=== PATIENT | male | born 1950 | race Caucasian/White ===

== ENCOUNTER 2022-02-28 07:33 | Day surgery (SDC) | payer MEDICARE, BC ==
[2022-02-27 14:36] LABS: BASOPHILS # (AUTO) 0.1 X10'3 (0-0.2); BASOPHILS % (AUTO) 0.8 % (0-1); EOSINOPHILS # (AUTO) 0.2 X10'3 (0-0.9); EOSINOPHILS % (AUTO) 2.6 % (0-6); HEMATOCRIT 34.9 % (42.0-52.0); LYMPHOCYTES # (AUTO) 1.9 X10'3 (1.1-4.8); LYMPHOCYTES % (AUTO) 22.1 % (21-51); MEAN CORPUSCULAR HEMOGLOBIN 24.9 PG (27.0-31.0); MEAN CORPUSCULAR HGB CONC 31.6 g/dL (33.0-36.5); MEAN CORPUSCULAR VOLUME 78.7 FL (78-98); MEAN PLATELET VOLUME 6.6 FL (7.4-10.4); MONOCYTES # (AUTO) 0.8 X10'3 (0-0.9); MONOCYTES % (AUTO) 9.4 % (2-12); NEUTROPHILS # (AUTO) 5.6 X10'3 (1.8-7.7); NEUTROPHILS % (AUTO) 65.1 % (42-75); PLATELET COUNT 444 X10'3 (140-440); RED BLOOD COUNT 4.44 X10'6 (4.70-6.10); RED CELL DISTRIBUTION WIDTH 18.4 % (11.5-14.5); WHITE BLOOD COUNT 8.6 X10'3 (4.5-11.0)
[2022-02-27 14:38] LABS: ALBUMIN 3.1 G/DL (3.4-5.0); ANION GAP 6 (8-16); BLOOD UREA NITROGEN 14 MG/DL (7-18); BUN/CREATININE RATIO 12.1 (5.4-32.0); CALCIUM 8.8 MG/DL (8.5-10.1); CHLORIDE 103 MMOL/L (99-107); CREATININE 1.16 MG/DL (0.60-1.10); GLUCOSE 273 MG/DL (70-104); POTASSIUM 4.2 MMOL/L (3.5-5.1); SODIUM 137 MMOL/L (135-145); TOTAL CARBON DIOXIDE 28.3 MMOL/L (24-32); eGFR 62 ML/MIN
[2022-02-27 14:42] LABS: APTT 24 SECONDS (22-32)
[~2022-02-28] VITALS: Ht 170.2 cm; Wt 109.1 kg
[2022-02-28] VITALS (17 sets, daily range): BP systolic 113–154; BP diastolic 54–83
[~2022-02-28 07:33] MED LIST: ASPI-1265 PO; ATOR40TA PO; CLOP75TA34 PO; FLO0.4C PO; FOLI0.4T6 PO; LOSA25TA96 PO; METO-411 PO; NIA500ERT PO; NITR0.4T51 SL; VITA-268 PO
[2022-02-28] MEDS ORDERED: diphenhydrAMINE 25mg capsule PO PRN (07:50)
[2022-02-28] MEDS ORDERED: LORazepam 0.5 MG tablet PO PRN (07:50)
[2022-02-28] MEDS ORDERED: normal saline 1,000 ML IV SCH (07:50)
[2022-02-28] MEDS ORDERED: acetylcysteine 200 MG/ml 4ml vial PO PRN (07:53)
[2022-02-28] MEDS ORDERED: LIDOcaine/PRILOcaine 5gm cream TP ONE (07:55)
[2022-02-28] MEDS ORDERED: ROSU20TA31 PO (08:35)
[2022-02-28] MEDS ORDERED: TADA20TA PO (08:37)
[2022-02-28] MEDS ORDERED: LIDOcaine 1% 30ml preserv. free vial ONE (09:09)
[2022-02-28] MEDS ORDERED: nitroGLYCERIN-Tridil 50MG/D5W 250 ML IV ONE (09:09)
[2022-02-28] MEDS ORDERED: fentaNYL/PF 50MCG/1 ML 2ML syringe ONE (09:09)
[2022-02-28] MEDS ORDERED: midazolam 1 mg/ML 2ml injection ONE (09:09)
[2022-02-28] MEDS ORDERED: verapamil 2.5 mg/ml inj IV ONE (09:09)
[2022-02-28] MEDS ORDERED: heparin 1,000unit/ml 10ml vial 10 ML ONE (09:10)
[2022-02-28] MEDS ORDERED: iohexol 350MG/ML 100ml bottle IV ONE ×2 (09:10→10:02)
--- NOTE | 2022-02-28 09:35 | NUR ---
Pt to cathodic protection technician, report to cathodic protection technician RN.
[2022-02-28] MEDS ORDERED: heparin 25,000 UNIT/250ml bag 250 ML IV ONE (10:09)
[2022-02-28] MEDS ORDERED: iohexol 350 MG/ML 50ML vial IV ONE (10:29)
[2022-02-28] MEDS ORDERED: clopidogrel 300mg tablet ONE (11:06)
--- NOTE | 2022-02-28 11:30 | NUR ---
Pt returned from minilab operator. Received report from Matilda HENNESSY. VSS, denies pain. Vasc band intact to right wrist, no bleeding, bruising or hematoma noted. Family Camacho at bedside, written prescription given to Camacho to drop off.
[2022-02-28] MEDS ORDERED: normal saline 1000ml 1,000 ML IV SCH (11:55)
--- NOTE | 2022-02-28 12:30 | NUR ---
Pt sitting up in bed eating a sandwich, drinking juice without problems. Vasc band intact.
--- NOTE | 2022-02-28 17:15 | NUR ---
Spoke to Dr. Cole re: pt wanting to go home earlier than 1900. Dr. Cole evaluated pt and agrees to a DC home time of 1800.
--- NOTE | 2022-02-28 17:50 | NUR ---
Written and Verbal DC instructions given to pt, including increasing ASA to 162mg, continuing to take Plavix 75mg, and increasing Rouvastatin to 40mg, pt verbalizes understanding. PIV DC cath intact, VSS, denies pain. Pt amb to rest room gait steady, void in toilet. Pt able to get himself dressed, steady on feet.
--- NOTE | 2022-02-28 17:55 | NUR ---
Pt brother here, stated he dropped off prescription for Plavix and Rouvastain at [facility] on [address] and they will worm picker the meds on way home. Pt currently taking Plavix and has it at home.
--- NOTE | 2022-02-28 18:00 | NUR ---
DC pt to home via WC with all belongings with brother. Right radial site stable.
[2022-03-01] MEDS ORDERED: clopidogrel 75mg tablet PO SCH (08:00)
== END 2022-02-28 18:00 | disposition home or self-care (01) ==
LOC: SSTAY O 07:33
PROVIDERS: ATTEND Internal Medicine Cardiovascular Disease
DX: I25.10 Atherosclerotic heart disease of native coronary artery without angina pectoris (principal); R94.39 Abnormal result of other cardiovascular function study; I10 Essential (primary) hypertension; I25.2 Old myocardial infarction; E66.9 Obesity, unspecified; E78.5 Hyperlipidemia, unspecified; G47.30 Sleep apnea, unspecified; F32.9 Major depressive disorder, single episode, unspecified; Z95.5 Presence of coronary angioplasty implant and graft; Z98.890 Other specified postprocedural states; Z79.899 Other long term (current) drug therapy; Z79.01 Long term (current) use of anticoagulants; Z79.82 Long term (current) use of aspirin
CPT/HCPCS: 36415; 76937; 80048; 85025; 85347; 85610; 85730; 92978; 93005; 93458; 99152; 99153; C1725; C1751; C1753; C1769; C1874; C1894; C9600; J1644; J2250; J3010; J3490; J7030; Q0163; Q9967; A4620; A6258; A6402